=== PATIENT | female | born 1990 | race Caucasian/White ===

== ENCOUNTER 2017-05-17 10:47 | Emergency (ER) | payer MEDICAID, OTHER ==
[2017-05-17 11:09] LABS: Hematocrit 38.5 % (37.0-47.0); Hemoglobin 13.1 gm/dL (12.5-16.0); Mean Cell Volume 84.8 fl (78-100); Mean Corpuscular Hemoglobin 28.9 pg (27-31); Neutrophil # 4.6 K/mm3 (1.3-6.0); Neutrophil % 64.3 % (42-75.0); Platelet Count 199 K/mm3 (150-450); Red Blood Count 4.54 M/mm3 (4.2-5.4); Red Cell Distribution Width 12.3 % (11.5-14.0); White Blood Count 7.1 K/mm3 (4.0-10.5)
[2017-05-17 11:27] LABS: Albumin * 3.6 gm/dl (3.4-5.0); Anion Gap 12.3 mmol/L (6.8-13.8); BUN/Creatinine Ratio 20.7 (9.0-21.6); Bilirubin, Total 0.4 mg/dL (0.0-1.1); Ca. Corrected For Albumin 9.2 mg/dL (8.4-10.2); Calcium * 9.2 mg/dL (7.9-10.9); Carbon Dioxide 26.4 mmol/L (24-32.6); Potassium 3.7 mmol/L (3.4-4.6); Total Protein 7.7 gm/dL (6.2-8.2)
[2017-05-17 11:39] LABS: Urine Bilirubin Negative (NEGATIVE); Urine Blood 25 /ul (NEGATIVE); Urine Ketone Negative (NEGATIVE); Urine Nitrite Negative (NEGATIVE); Urine Protein Negative (NEGATIVE); Urine Specific Gravity 1.015 SP.GR. (1.005-1.010); Urine Urobilinogen Normal (NORMAL)
[2017-05-17 11:49] LABS: Urine Appearance Slightly Cloudy; Urine Bacteria 2+; Urine Color Yellow; Urine RBC None Seen /hpf (0-5); Urine WBC 0-5 /hpf (0-5)
[2017-05-17] MEDS ORDERED: MECLIZINE HCL 25 MG TABLET PO ONE (12:05)
[2017-05-17] MEDS ORDERED: MECLIZINE HCL 25 MG TABLET ONE (12:11)
--- OUTSIDE RECORDS SUMMARY | 2017-05-17 12:12 | XMS REPORT | Continuity of Care Document ---
:1990 Author Organization [employer] [place] [address] Care Team Providers Name Role Phone Cherrie Vargas Primary Care Provider [phone] Source Comments This disclosure is being made pursuant to the [employer] program and maynot contain all information available regarding this patient.[employer] Active Allergies and Adverse Reactions No Known Allergies Current Medications Be aware that medications may not be up to date as of this document. Alwaysverify current medications with the patient. Prescription Sig. Disp. Refills Start Date End Date Status vitamin Take 1 tablet by Active 28-0.8 MG TABS tablet mouth daily. norgestrel-ethinyl Take 1 tablet by 56 tablet 0 11/24/2016 Active estradiol 0.3-30 mouth daily. MG-MCG per tablet Skipping the placebo week. levonorgest-eth estrad Take 1 tablet by 91 each 3 01/12/2017 Active 91-day 0.15-0.03 &0.01 mouth daily. MG TABS tablet Hospital, Clinic, or Ordered Dose Route Frequency Start Date End Date Status Other Facility Administered Medication etonogestrel 1{each} SD every 3 years 10/30/2016 Active (IMPLANON/NEXPLANON) SC implant IMPL Active Problems Patient Care Coordination Note (FOB Mahesh) BMI 28. Girl (name?) H/o primary LH section for HSV 2012 (AB) desires repeat Place on suppression at [facility] due to 2 outbreaks already this Flu vaccine today Repeat on 09-01-16 at 0715 with [facility] Low lying placenta- resolved Problem Noted Date exam 10/13/2016 Status post repeat low transverse section 08/31/2016 Thyroid nodule 07/28/2014 Overview: Identified By: Vannesa Dinero Anxiety state 06/05/2013 Overview: Identified By: Sarahi Resendiz HSV (herpes simplex virus) infection 05/09/2013 Resolved Problems Problem Noted Date Resolved Date Swelling of lower extremity during in third 06/15/2016 06/16/2016 trimester- negative dopplers 06-14-16 Supervision of normal in third trimester 06/04/2016 10/30/2016 Last Assessment & Plan: 1. CBC/GCT today 2. RTC: 3-4 weeks Low-lying placenta in second trimester 04/15/2016 07/14/2016 Last Assessment & Plan: 1. 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 Has repeat scheduled Endometritis 05/19/2013 05/09/2015 S/P section 05/09/2013 05/09/2015 SROM (spontaneous rupture of membranes) 05/09/2013 05/09/2015 Immunizations Name Dates Previously Given Next Due INFLUENZA, INACTIVATED, QUADRIVALENT, 3 YEARS AND 08/06/2016,02/10/2016 older, single dose syringe/vial Tdap 07/23/2016,03/22/2013 Social History Tobacco Use Types Packs/Day Years Used Date Never Smoker Smokeless Tobacco: Never Used Alcohol Use Drinks/Week oz/Week Comments No 0.0 Last Filed Vital Signs Vital Sign Reading Time Taken Blood Pressure 110/60 10/30/2016 2:31 PM NEW CAR INSPECTOR Pulse 86 10/30/2016 2:31 PM NEW CAR INSPECTOR Temperature 36.9 C (98.5 F) 10/30/2016 2:31 PM NEW CAR INSPECTOR Respiratory Rate 16 10/30/2016 2:31 PM NEW CAR INSPECTOR Height 1.6 m (5' 3") 10/30/2016 2:31 PM NEW CAR INSPECTOR Weight 74.299 kg (163 lb 12.8 oz) 10/30/2016 2:31 PM NEW CAR INSPECTOR Body Mass Index 29.02 10/30/2016 2:31 PM NEW CAR INSPECTOR Oxygen Saturation 98% 10/26/2016 8:11 AM NEW CAR INSPECTOR Plan of Care Health Maintenance Due Date Last Done Comments Pap Smear 02/09/2019 02/10/2016, Additional history exists 07/05/2014, 06/21/2013 Tetanus/Pertussis (3 - Td) 07/23/2026 07/23/2016, 03/22/2013 Influenza Immunization Completed 08/06/2016, 02/10/2016 Results from Last 3 Months Not on file Insurance Payer Benefit Plan / Subscriber ID Type Phone Address Group WORK 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
--- NOTE | 2017-05-17 12:14 | ERNOTE ---
Dizziness ER Record Date of Service: 05/17/17 Presenting Symptoms: dizziness Time Seen by Provider: 05/17/17 11:56 Source: patient, RN notes reviewed Exam Limitations: no limitations Immunizations: IMMUNIZATION HX History of Influenza Vaccine Yes Allergies/Adverse Reactions: Allergies Allergy/AdvReac Type Severity Reaction Status Date / Time No Known Drug Allergies Allergy Verified 05/17/17 10:56 Home Medications: HOME MEDICATIONS Meclizine HCl [Antivert] 25 mg PO TID PRN #20 tab 05/17/17 [Last Taken Unknown] Sulfamethoxazole/Trimethoprim [Bactrim Ds] 1 tab PO BID #14 tab 05/17/17 [Last Taken Unknown] - History of Present Illness Narrative: 26 y/o female ambulatory to the ED for dizziness that began a couple of weeks ago, but has gotten worse today. She has not been taking anything for her symptoms. Timing and Duration: gradual onset, better Noted on awakening:: No Severity: max: moderate Severity: currently: mild Associated Symptoms: Present: nausea, light headedness. Absent: hearing loss, ringing/roaring in ear, ear pain, vomiting, headache, weakness, numbness, sweating, sense of confusion Sense of movement: Present: vague Decreased ability to stand/walk:: Present: walks w/o assistance Usually:: Present: walks w/o assistance Prior Treament: Denies: recently seen, similar symptoms before Review of Systems - Review of Systems Constitutional: Present: malaise. Absent: recent illness, fever, chills EYE: Absent: eye pain, blurred vision, vision changes ENT: Absent: ear pain, ear discharge, nose congestion, nasal drainage, sore throat Respiratory: Absent: shortness of breath, cough Cardiology: Absent: chest pain, palpitations, syncope Gastrointestinal/Abdominal: Present: nausea. Absent: vomiting, diarrhea, abdominal pain Genitourinary: Absent: frequency, dysuria, hematuria Musculoskeletal: Present: back pain. Absent: neck pain, joint pain Skin: Absent: rash, lesions Endocrine: Present: no symptoms reported Hematologic/Lymphatic: Present: no symptoms reported Psych: Present: no symptoms reported - Patient's Past Medical History Patient History - Medical: No pertinent hx Patient History - Cardiac/Respiratory: No pertinent hx Patient History - Cancer: No Hx of Cancer Patient History - Surgical Procedures: Patient History - Other: None - Social History Living Situations: home Psych History: No pertinent hx Does anyone smoke in the home?: No Smoking Status: Never smoker Alcohol Use: none Drug Use: none - Immunizations History of Influenza Vaccine: Yes Physical Exam - Physical Exam General Appearance: Present: wd/wn, alert, no apparent distress Eye Exam: Normal inspection: bilateral, PERRL: bilateral, EOMI: right, Abnormal EOM: left - Dizziness with gaze to far left Ears, Nose, Throat: Present: abnormal TM (R), abnormal TM (L) - fluid behind TM , nasal congestion - left nare, normal pharynx. Absent: hearing decreased, sinus pain/drainage Neck: Present: normal inspection, nontender, supple Respiratory: Present: no respiratory distress, normal breath sounds, no accessory muscle use, lungs clear Cardiovascular/Chest: Present: regular rate, rhythm, no murmur, normal peripheral pulses Gastrointestinal/Abdominal: Present: normal bowel sounds, nondistended, soft, tenderness - mild, suprapubic Back Exam: Present: normal inspection, no CVA tenderness Extremity Exam: Present: normal inspection, normal range of motion, no edema Neurological Exam: Present: alert, oriented, normal mood/affect, no motor/ sensory deficits, other - gait steady Skin Exam: Present: normal color, warm/dry ED Progress - Results and Orders Patient's Lab Results:: I have reviewed the patient's lab results. - Vital Signs Patient's Vital Signs:: I have reviewed the patient's vital signs. Vital Signs: Vital Signs 05/17/17 10:49 Temperature 36.4 C L Pulse Rate 68 Respiratory 12 Rate Blood Pressure 126/87 O2 Sat by Pulse 97 Oximetry - Progress/Reassessment Chief Complaint: Dizziness Progress:: Unchanged Departure Clinical Impression: Dizziness, Urinary tract infection in female - Departure Disposition: Home Follow Up Needed Condition: Stable Instructions: Urinary Tract Infection, Adult, [id number], Dizziness, Easy-to- Read Additional Instructions: Take Meclizine as needed for dizziness Take all of your antibiotic unless you are contacted and instructed not to Drink a lot of water Prescriptions: Meclizine HCl [Antivert] 25 mg PO TID PRN #20 tab PRN Reason: dizziness Sulfamethoxazole/Trimethoprim [Bactrim Ds] 1 tab PO BID #14 tab
[2017-05-17 12:15] VITALS: BP 122/81
== END 2017-05-17 12:21 | disposition home or self-care (01) ==
LOC: ER 10:47
DX: N39.0 Urinary tract infection, site not specified (principal); R42 Dizziness and giddiness

== ENCOUNTER 2017-05-27 08:13 | Emergency (ER) | payer MEDICAID ==
[2017-05-27 08:31] LABS: Urine Bilirubin Negative (NEGATIVE); Urine Blood Negative /ul (NEGATIVE); Urine Ketone Negative (NEGATIVE); Urine Nitrite Negative (NEGATIVE); Urine Protein Negative (NEGATIVE); Urine Specific Gravity >=1.030 SP.GR. (1.005-1.010); Urine Urobilinogen Normal (NORMAL); Urine pH 5.5 pH (5.0-7.0)
[2017-05-27 08:46] LABS: Urine Appearance Slightly Cloudy; Urine Color Yellow
[2017-05-27 08:47] LABS: Urine Bacteria 2+; Urine RBC None Seen /hpf (0-5); Urine WBC 0-5 /hpf (0-5)
[2017-05-27 08:49] VITALS: BP 128/82
--- OUTSIDE RECORDS SUMMARY | 2017-05-27 09:23 | XMS REPORT | Continuity of Care Document ---
:1990 Author Organization [employer] [place] [address] Care Team Providers Name Role Phone Cherrie Vargas Primary Care Provider [phone] Source Comments This disclosure is being made pursuant to the [employer] program and maynot contain all information available regarding this patient.[employer] Active Allergies and Adverse Reactions No Known [...] 08/31/2016 Thyroid nodule 07/28/2014 Overview: Identified By: Vannsea Dinero Anxiety state 06/05/2013 Overview: Identified By: [...] Taken Blood Pressure 110/60 10/30/2016 2:31 PM OPTICAL ENGINEERING TECHNICIAN Pulse 86 10/30/2016 2:31 PM OPTICAL ENGINEERING TECHNICIAN Temperature 36.9 C (98.5 F) 10/30/2016 2:31 PM OPTICAL ENGINEERING TECHNICIAN Respiratory Rate 16 10/30/2016 2:31 PM OPTICAL ENGINEERING TECHNICIAN Height 1.6 m (5' 3") 10/30/2016 2:31 PM OPTICAL ENGINEERING TECHNICIAN Weight 74.299 kg (163 lb 12.8 oz) 10/30/2016 2:31 PM OPTICAL ENGINEERING TECHNICIAN Body Mass Index 29.02 10/30/2016 2:31 PM OPTICAL ENGINEERING TECHNICIAN Oxygen Saturation 98% 10/26/2016 8:11 AM OPTICAL ENGINEERING TECHNICIAN Plan of Care Health Maintenance Due Date Last Done Comments Pap Smear 02/09/2019 02/10/2016, Additional history exists 07/05/2014, 06/21/2013 Tetanus/Pertussis (3 - Td) 07/23/2026 07/23/2016, 03/22/2013 Influenza Immunization Completed 08/06/2016, 02/10/2016 Results from Last 3 Months Not on file Insurance Payer Benefit Plan / Subscriber ID Type Phone Address Group WORK COMP SHARE WORKERS COMP SHARE [id number] [facility] [id number] [phone] [address] [facility] [place] [address] [employer] SHIP[employer] Personal/Famil Self 1990 Home: [address] y [phone] [place] [address]
--- NOTE | 2017-05-27 09:40 | ERNOTE ---
ER Female HPI Stated Complaint: PRIVATE Presenting Symptoms: dysuria Time Seen by Provider: 05/27/17 08:30 Source: patient Exam Limitations: no limitations Immunizations: IMMUNIZATION HX History of Influenza Vaccine Yes Allergies/Adverse Reactions: Allergies No Known Drug Allergies Allergy (Verified 05/27/17 08:21) Home Medications: HOME MEDICATIONS Ciprofloxacin [Cipro Suspension] 500 mg PO BID #20 btl 05/27/17 [Last Taken Unknown] Fluconazole [Diflucan] 150 mg PO DAILY #2 tablet 05/27/17 [Last Taken Unknown] - History of Present Illness Timing: Present: constant Quality: Present: moderate, aching, burning Onset Location: Present: urethral Radiation: Present: none Activities at Onset: Present: none Prior Abdominal Problems: Present: none Sexual Coy History: Present: single partner Modifying Factors - (Worsens): Present: urinating Associated Symptoms: Present: denies symptoms Review of Systems - Review of Systems Constitutional: Present: no symptoms reported EYE: Present: no symptoms reported ENT: Present: no symptoms reported Respiratory: Present: no symptoms reported Cardiology: Present: no symptoms reported Gastrointestinal/Abdominal: Present: no symptoms reported Genitourinary: Present: frequency, pain, dysuria Musculoskeletal: Present: no symptoms reported Skin: Present: no symptoms reported Neurological: Present: no symptoms reported Endocrine: Present: no symptoms reported Hematologic/Lymphatic: Present: no symptoms reported Psych: Present: no symptoms reported All Other Systems: All systems neg except as marked - Patient's Past Medical History Patient History - Medical: No pertinent hx Patient History - Cardiac/Respiratory: No pertinent hx Patient History - Cancer: No Hx of Cancer Patient History - Surgical Procedures: Patient History - Other: None LMP (females 10-50): last week - Family History Family History:: no untoward family reactions to anesthesia, no familial bleeding tendencies, no family history of clotting disorders, no family history of premature - Social History Living Situations: home Psych History: No pertinent hx Does anyone smoke in the home?: No Smoking Status: Never smoker Have you smoked in the past 12 months: No Do you dip or chew tobacco: No Patient requests Smoking Cessation Consult: No Initiate information on Smoking Cessation: No Alcohol Use: none Drug Use: none - Immunizations History of Influenza Vaccine: Yes Physical Exam - Physical Exam General Appearance: Present: mild distress Head Exam: Present: normal inspection Eye Exam: Normal inspection: bilateral, PERRL: bilateral, EOMI: bilateral Ears, Nose, Throat: Present: normal ENT inspection Neck: Present: normal inspection, nontender Respiratory: Present: no respiratory distress, normal breath sounds, no accessory muscle use, chest nontender, lungs clear Cardiovascular/Chest: Present: regular rate, rhythm, no murmur, normal peripheral pulses Peripheral Pulses: N=norm/S=strong/W=weak/B=bound/A=absent: Carotid (R): Normal , Carotid (L): Normal, Radial (R): Normal, Radial (L): Normal, Femoral (R): Normal, Femoral (L): Normal, Dorsalis-pedis (R): Normal, Dorsalis-pedis (L): Normal Gastrointestinal/Abdominal: Present: normal bowel sounds, nontender, nondistended Back Exam: Present: normal inspection, normal range of motion, no CVA tenderness , no vertebral tenderness Extremity Exam: Present: normal inspection, non-tender, normal range of motion, no edema Neurological Exam: Present: alert, oriented, normal mood/affect, no motor/ sensory deficits DTR: N=norm/NB=norm/brisk/A=abs/DD=dull/dimin/HC=hyperactive: Bicep (R): Normal , Bicep (L): Normal, Tricep (R): Normal, Tricep (L): Normal, Knee (R): Normal, Knee (L): Normal, Ankle (R): Normal, Ankle (L): Normal Skin Exam: Present: normal color, warm/dry Lymphatic Exam: Present: no adenopathy ED Progress - Results and Orders Patient's Lab Results:: I have reviewed the patient's lab results. - Vital Signs Patient's Vital Signs:: I have reviewed the patient's vital signs. Vital Signs: Vital Signs 05/27/17 05/27/17 08:18 08:48 Temperature 36.0 C L Pulse Rate 78 88 Respiratory 12 12 Rate Blood Pressure 130/78 128/82 O2 Sat by Pulse 97 97 Oximetry - EKG EKG: other - urinary tract infection - Progress/Reassessment Chief Complaint: Genitourinary Problem Progress:: Unchanged - Transfer of Care Expected Disposition: Discharge Departure Clinical Impression: Urinary tract infection in female - Departure Disposition: Home self-care Condition: Fair Instructions: Urinary Tract Infection, Adult, [id number] Prescriptions: Ciprofloxacin [Cipro Suspension] 500 mg PO BID #20 btl Fluconazole [Diflucan] 150 mg PO DAILY #2 tablet
== END 2017-05-27 09:46 | disposition home or self-care (01) ==
LOC: ER 08:13
DX: N39.0 Urinary tract infection, site not specified (principal)

== ENCOUNTER 2017-06-23 17:20 | Emergency (ER) | payer MEDICAID, OTHER ==
--- OUTSIDE RECORDS SUMMARY | 2017-06-23 17:52 | XMS REPORT | Encounter Summary ---
:1990 Author Organization [employer] [place] [address] Care Team Providers Name Role Phone Unavailable Primary Care Provider Unavailable Reason for Visit Reason Comments Medication Refill Encounter Details Date Type Department Care Team Description 01/11/2017 Refill [facility] Steven Ob Rachell Ny, WINDOW DRAPER Supervisor Carpenters [address] [place] [address] [place] [address] [phone] Social History Tobacco Use Types Packs/Day Years Used Date Never Smoker Smokeless Tobacco: Never Used Alcohol Use Drinks/Week oz/Week Comments No 0.0 Sex Assigned at Date Recorded Not on file as of this encounter Functional Status Functional Status Response Date of Assessment Are you deaf or do you have serious difficulty hearing? No 08/31/2016 Are you blind or do you have serious difficulty seeing, No 08/31/2016 even when wearing glasses? Do you have serious difficulty walking or climbing No 08/31/2016 stairs? (5 years old or older) Do you have difficulty dressing or bathing? (5 years old No 08/31/2016 or older) Because of a physical, mental, or emotional condition, do No 08/31/2016 you have difficulty doing errands alone such as visiting a doctor's office or shopping? (15 years old or older) Cognitive Status Response Date of Assessment Because of a physical, mental, or emotional condition, do No 08/31/2016 you have serious difficulty concentrating, remembering, or making decisions? (5 years old or older) as of this encounter Plan of Treatment Not on fileas of this encounter Visit Diagnoses Not on filein this encounter
--- OUTSIDE RECORDS SUMMARY | 2017-06-23 17:52 | XMS REPORT | Encounter Summary ---
:1990 Author Organization [employer] [place] [address] Care Team Providers Name Role Phone Unavailable Primary Care Provider Unavailable Reason for Visit Reason Comments Contraception Encounter Details Date Type Department Care Team Description 01/12/2017 Telephone [facility] Anahy Orellana, RN Contraception Preschool Teacher [address] [place] [address] [place] [address] [phone] Social History Tobacco Use Types Packs/Day Years [...]
--- OUTSIDE RECORDS SUMMARY | 2017-06-23 17:52 | XMS REPORT | Clinical Summary ---
:1990 Author Organization [employer] Address Unavailable [place] [address] Care Team Providers Name Role Phone Unavailable Primary Care Provider Unavailable Source Comments This disclosure is being made pursuant to the [employer] program and maynot contain all information available regarding this patient.[employer] Allergies No Known Allergies Current Medications Be aware [...] Date Status Other Facility Administered Medication etonogestrel 1 each SD every 3 years 10/30/2016 Active (IMPLANON/NEXPLANON) SC implant IMPLIndications:Nexplanon insertion Active Problems Patient Care Coordination Note (FOB [...] in third 06/15/2016 06/16/2016 trimester- negative dopplers 7-31-16 Supervision of normal in third trimester 06/04/2016 [...] 08/06/2016,02/10/2016 older, single dose syringe/vial Tdap 07/23/2016,03/22/2013 Family History Medical History Relation Name Comments Asthma Father COPD Maternal Grandfather Hypertension Mother Thyroid disease Paternal Grandfather Relation Name Status Comments Father Alive Maternal Grandfather Alive Maternal Grandmother Alive Mother Alive Paternal Grandfather Alive Paternal Grandmother Alive Social History Tobacco Use Types Packs/Day Years Used Date Never Smoker Smokeless Tobacco: Never Used Alcohol Use Drinks/Week oz/Week Comments No 0.0 Sex Assigned at Date Recorded Not on file Last Filed Vital Signs Vital Sign Reading Time Taken Blood Pressure 110/60 10/30/2016 2:31 PM 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 Pulse 86 10/30/2016 2:31 PM 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 Temperature 36.9 C (98.5 F) 10/30/2016 2:31 PM 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 Respiratory Rate 16 10/30/2016 2:31 PM 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 Oxygen Saturation 98% 10/26/2016 8:11 AM 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 Inhaled Oxygen Concentration - - Weight 74.3 kg (163 lb 12.8 oz) 10/30/2016 2:31 PM 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 Height 160 cm (5' 3") 10/30/2016 2:31 PM 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 Body Mass Index 29.02 10/30/2016 2:31 PM 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 Plan of Treatment Health Maintenance Due Date Last Done Comments Pap Smear 02/09/2019 02/10/2016, 07/05/2014, 06/21/2013, Additional history exists Tetanus/Pertussis (3 - Td) 07/23/2026 07/23/2016, 03/22/2013 INFLUENZA IMMUNIZATION Completed 08/06/2016, 02/10/2016 Results Not on filefrom Last 3 Months Insurance Payer Benefit Plan / Subscriber ID Type Phone Address Group WORK COMP SHARE WORKERS COMP SHARE [id number] [facility] [id number] [phone] [address] [employer] [address] [place] [phone] Home: [address] y [phone] [place] [address] [employer] [employer] Personal/Famil Self 1990 Home: [address] y [phone] [address]
--- OUTSIDE RECORDS SUMMARY | 2017-06-23 17:52 | XMS REPORT | Encounter Summary ---
:1990 Author Organization [employer] [place] [address] Care Team Providers Name Role Phone Unavailable Primary Care Provider Unavailable Reason for Visit Reason Comments Medication Refill Encounter Details Date Type Department Care Team Description 01/11/2017 Telephone [facility] Anahy Orellana junior software developer Refill Car Repairer Helper [address] [place] [address] [place] [address] Social History Tobacco Use Types Packs/Day Years [...]
--- OUTSIDE RECORDS SUMMARY | 2017-06-23 17:53 | XMS REPORT | Encounter Summary ---
:1990 Author Organization [employer] [place] [address] Care Team Providers Name Role Phone Unavailable Primary Care Provider Unavailable Encounter Details Date Type Department Care Team Description 11/24/2016 [facility] Anahy Orellana RN Printing Press Machine Operator [address] [place] [address] [place] [address] Social History Tobacco Use Types Packs/Day Years [...]
--- OUTSIDE RECORDS SUMMARY | 2017-06-23 17:53 | XMS REPORT | Encounter Summary ---
:1990 Author Organization [employer] [place] [address] Care Team Providers Name Role Phone Unavailable Primary Care Provider Unavailable Reason for Visit Reason Comments Other break through bleeding Encounter Details Date Type Department Care Team Description 12/10/2016 Telephone [facility] Molly Welsh, Other (break through [place] Chemist Physical RN bleeding) [address] [place] [address] [place] [address] Social History Tobacco Use Types Packs/Day Years [...]
--- OUTSIDE RECORDS SUMMARY | 2017-06-23 17:53 | XMS REPORT | Encounter Summary ---
:1990 Author Organization [employer] [place] [address] Care Team Providers Name Role Phone Unavailable Primary Care Provider Unavailable Reason for Visit Reason Comments Medication Refill Encounter Details Date Type Department Care Team Description 12/02/2016 Refill [facility] Anahy Walter administrative services officer [address] [place] [address] [place] [address] Social History Tobacco Use Types Packs/Day Years [...]
[2017-06-23 17:54] LABS: Urine Bilirubin Negative (NEGATIVE); Urine Blood Negative /ul (NEGATIVE); Urine Ketone Negative (NEGATIVE); Urine Nitrite Negative (NEGATIVE); Urine Protein Negative (NEGATIVE); Urine Urobilinogen Normal (NORMAL)
--- OUTSIDE RECORDS SUMMARY | 2017-06-23 17:54 | XMS REPORT | Encounter Summary ---
:1990 Author Organization [employer] [place] [address] Care Team Providers Name Role Phone Unavailable Primary Care Provider Unavailable Reason for Visit Reason Comments Telephone Call Encounter Details Date Type Department Care Team Description 10/21/2016 Telephone [facility] Lashon Oswald RN Telephone Call Circulation Assistant [address] [place] [address] [place] [address] Social History Tobacco Use Types Packs/Day Years [...]
--- OUTSIDE RECORDS SUMMARY | 2017-06-23 17:54 | XMS REPORT | Encounter Summary ---
:1990 Author Organization [email or web address] [facility] [place] [address] Care Team Providers Name Role Phone Unavailable Primary Care Provider Unavailable Reason for Visit Reason Comments Cough x 1 week Ear Pain Encounter Details Date Type Department Care Team Description 10/26/2016 Office Visit [facility] Street, Raegan S, Upper respiratory Urgent Care [place] NURSING PROJECT COORDINATOR tract infection, [address], [address] [place] unspecified type [address] (Primary Dx) [place] [phone] [place] [id number] Social History Tobacco Use Types Packs/Day Years Used Date Never Smoker Smokeless Tobacco: Never Used Alcohol Use Drinks/Week oz/Week Comments No 0.0 Sex Assigned at Date Recorded Not on file as of this encounter Last Filed Vital Signs Vital Sign Reading Time Taken Blood Pressure 114/68 10/26/2016 8:11 AM CHICK GRADER Pulse 78 10/26/2016 8:11 AM CHICK GRADER Temperature 36.6 C (97.8 F) 10/26/2016 8:11 AM CHICK GRADER Respiratory Rate 16 10/26/2016 8:11 AM CHICK GRADER Oxygen Saturation 98% 10/26/2016 8:11 AM CHICK GRADER Inhaled Oxygen Concentration - - Weight 73 kg (161 lb) 10/26/2016 8:11 AM CHICK GRADER Height 160 cm (5' 3") 10/26/2016 8:11 AM CHICK GRADER Body Mass Index 28.52 10/26/2016 8:11 AM CHICK GRADER in this encounter Functional Status Functional Status Response [...] old or older) as of this encounter Progress Notes Raegan Ndiaye ARNP - 10/26/2016 8:20 AM CSTFormatting of this note may be different from the original. Chief Complaint Patient presents with Cough x 1 week Ear Pain Subjective: HPI Patient presents with a week of cough, worse at night. She denies any known fevers or chills. She's been having right ear pain for about 3 days. She has been congested. She denies any nausea, vomitingor diarrhea. She does have an occasional sore throat. She states that her cough sometimes causes some wheezes. She has been blowing her nose frequently. 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 Has been using OTC medications Social History Substance Use Topics Smoking status: Never Smoker Smokeless tobacco: Never Used Alcohol Use: No Review of Systems CONSTITUTIONAL: See HPI. Negative for appetite change and fatigue. HEENT: See HPI RESPIRATORY: See HPI. CARDIOVASCULAR: Negative for chest pain. GASTROINTESTINAL: Negative for nausea, vomiting, abdominal pain, diarrhea and constipation. SKIN: Negative. Objective: Filed Vitals: 10/26/16 0811 BP: 114/68 Pulse: 78 Temp: 36.6 C (97.8 F) TempSrc: Tympanic Resp: 16 Height: 1.6 m (5' 3") Weight: 73.029 kg (161 lb) SpO2: 98% Physical Exam GENERAL: She is oriented to person, place, and time. She appears well-developed and well-nourished, and in no acute distress. HEAD: Normocephalic, atraumatic. EYES: Right eye clear. Left eye clear. Pupils are equal, round, and reactive to light. EARS: Right and left TMs normal. Ear canals normal. NOSE: Mild, thin rhinorrhea. THROAT: Uvula is midline, oropharynx is clear and moist and with mild erythema. No tonsillar exudate. NECK: No cervical adenopathy. Neck is supple. No thyromegaly. CARDIOVASCULAR: Normal rate, regular rhythm and normal heart sounds. No murmur heard. RESPIRATORY: Lungs are clear to auscultation without crackles, wheezes, or rhonchi. Breathing is unlabored. Assessment/Orders: ICD-9-CM ICD-10-CM 1. Upper respiratory tract infection, unspecified type 465.9 J06.9 Plan: Medication as ordered. Side effects of prednisone discussed. Advised to push fluids. Reviewed fever, pain, and symptom control with Tylenol or ibuprofen, salt water gargles, nasal saline, humidity, and OTC medications. Fluids and rest. Instructed to call or return for: --Symptoms not improved in 5-7 days --Worsening symptoms --New, unexplained symptoms develop Patient understands and agrees with plan. KENYA Mc 10/26/2016 8:23 AM in this encounter Plan of Treatment Not on fileas of this encounter Visit Diagnoses Diagnosis Upper respiratory tract infection, unspecified type - Primary in this encounter
--- OUTSIDE RECORDS SUMMARY | 2017-06-23 17:54 | XMS REPORT | Encounter Summary ---
:1990 Author Organization [employer] [place] [address] Care Team Providers Name Role Phone Unavailable Primary Care Provider Unavailable Reason for Visit Reason Comments Follow-up Encounter Details Date Type Department Care Team Description 10/05/2016 Telephone [facility] Anahy Robertson RN Postpartum Follow-up [place] Test Man [address] [place] [address] [place] [address] Social History Tobacco Use Types Packs/Day Years [...]
--- OUTSIDE RECORDS SUMMARY | 2017-06-23 17:54 | XMS REPORT | Encounter Summary ---
:1990 Author Organization [employer] Address Unavailable [place] [address] Care Team Providers Name Role Phone Unavailable Primary Care Provider Unavailable Reason for Visit Reason Comments Follow-up Encounter Details Date Type Department Care Team Description 10/13/2016 Visit [facility] Clara Mak Status post repeat low transverse section (Primary Dx); Megan Salmon Troll Fisher A, exam [address] [place] [address] [address] [phone] [place] [id number] Social History Tobacco Use Types Packs/Day Years Used Date Never Smoker Smokeless Tobacco: Never Used Alcohol Use Drinks/Week oz/Week Comments No 0.0 Sex Assigned at Date Recorded Not on file as of this encounter Last Filed Vital Signs Vital Sign Reading Time Taken Blood Pressure 116/78 10/13/2016 10:26 AM OLD COIN DEALER Pulse 76 10/13/2016 10:26 AM OLD COIN DEALER Temperature 36.3 C (97.4 F) 10/13/2016 10:26 AM OLD COIN DEALER Respiratory Rate 20 10/13/2016 10:26 AM OLD COIN DEALER Oxygen Saturation - - Inhaled Oxygen Concentration - - Weight 73 kg (161 lb) 10/13/2016 10:26 AM OLD COIN DEALER Height 160 cm (5' 3") 10/13/2016 10:26 AM OLD COIN DEALER Body Mass Index 28.52 10/13/2016 10:26 AM OLD COIN DEALER in this encounter Functional Status Functional Status [...] older) as of this encounter Progress Notes Clara Mak MD - 10/13/2016 10:36 AM CSTFormatting of this note may be different from the original. Subjective: Sierra Strange is a 26 y.o. female who presents for a visit. She is 6 weeks following a low cervical vertical section. Baby female named Amada . Baby's course has been uncomplicated . Baby is feeding by breast.Bleeding no bleeding. Bowel function is normal. Bladder function is normal. Desires Nexplanon for contracetption. depression screening: negative. . LAST pap was 01/28 and result normal, no history of abnormal Patient's problem list, medications, allergies, past medical, surgical, social and family histories were reviewed and updated as appropriate. Objective: BP 116/78 mmHg | Pulse 76 | Temp(Src) 97.4 F (36.3 C) (Tympanic) | Resp 20 | Ht 5' 3" (1.6 m) | Wt 161 lb (73.029 kg) | BMI 28.53 kg/m2 | ? Yes General: alert, appears stated age and cooperative Abdomen: soft, non-tender; bowel sounds normal; no masses, no organomegaly Vulva: normal Vagina: normal vagina, no discharge, exudate, lesion, or erythema Cervix: no lesions Corpus: normal size, contour, position, consistency, mobility, non-tender Adnexa: no mass, fullness, tenderness Assessment: normal exam. Pap smear not done at today's visit. Plan: 1. Contraception: desires implanon 2. Fenugreek for milk production 3. Follow up in: 1 year or as needed. Make appt with DS for nexplanon. Had in past and liked it. in this encounter Plan of Treatment Not on fileas of this encounter Visit Diagnoses Diagnosis Status post repeat low transverse section - Primary delivery, without mention of indication, unspecified as to episode of care exam Routine follow-up in this encounter
--- OUTSIDE RECORDS SUMMARY | 2017-06-23 17:54 | XMS REPORT | Encounter Summary ---
:1990 Author Organization [employer] [place] [address] Care Team Providers Name Role Phone Unavailable Primary Care Provider Unavailable Reason for Visit Reason Comments Contraception Encounter Details Date Type Department Care Team Description 10/30/2016 Office Visit [facility] Rachell Ny, Nexplanon insertion [place] Fur Mixer LIFE SKILLS TEACHER (Primary Dx) [address] [place] [address] Road [phone] [place], [place] [address] [phone] Social History Tobacco Use Types Packs/Day Years Used Date Never Smoker Smokeless Tobacco: Never Used Alcohol Use Drinks/Week oz/Week Comments No 0.0 Sex Assigned at Date Recorded Not on file as of this encounter Last Filed Vital Signs Vital Sign Reading Time Taken Blood Pressure 110/60 10/30/2016 2:31 PM WORKFORCE MANAGEMENT MANAGER Pulse 86 10/30/2016 2:31 PM WORKFORCE MANAGEMENT MANAGER Temperature 36.9 C (98.5 F) 10/30/2016 2:31 PM WORKFORCE MANAGEMENT MANAGER Respiratory Rate 16 10/30/2016 2:31 PM WORKFORCE MANAGEMENT MANAGER Oxygen Saturation - - Inhaled Oxygen Concentration - - Weight 74.3 kg (163 lb 12.8 oz) 10/30/2016 2:31 PM WORKFORCE MANAGEMENT MANAGER Height 160 cm (5' 3") 10/30/2016 2:31 PM WORKFORCE MANAGEMENT MANAGER Body Mass Index 29.02 10/30/2016 2:31 PM WORKFORCE MANAGEMENT MANAGER in this encounter Functional Status Functional Status [...] old or older) as of this encounter Instructions Patient Instructions - Rachell Ny ARNP - 10/30/2016 2:54 PM WORKFORCE MANAGEMENT MANAGER Implant for Control: Care Instructions Your Care Instructions The implant is used to prevent . It's a thin rafaela about the size of a matchstick that is inserted under the skin (subdermal) on the inside of your arm. The implant prevents for 3 years. After it is put in, you don't have to do anything else to prevent . Follow-up care is a tejeda part of your treatment and safety. Be sure to make and go to all appointments, and call your doctor if you are having problems. It's also a good idea to know your test resultsand keep a list of the medicines you take. How can you care for yourself at home? How do you use the subdermal implant? The implant is put in and taken out by your doctor or another trained health professional. This is done in your doctor's office. It only takes a few minutes. Ask your doctor if you need to use backup control, such as a condom. And ask if (and how long) you should avoid intercourse after you get the implant. You may need to do this, depending on where you are in your cycle. What else do you need to know? The implant has side effects. You may have changes in your period. Your period may stop. You may also have spotting or bleeding between periods. You may have mood changes, less interest in sex, or weight gain. Remember that 3 years after you receive the implant, you must have it removed or get a new one. If you don't replace the implant and don't use another form of control , you could get . If you have the implant removed, you'll have to find another method of control. If you don't, you may get . Even if you are planning to get , you have to have the implant removed. Check with your doctor before you use any other medicines. This includes over -the-counter medicines, vitamins, herbal products, and supplements. control hormones may not work as well to prevent when combined with other medicines. The implant doesn't protect against sexually transmitted infections (STIs), such as herpes or HIV/AIDS. If you're not sure if your sex partner might have an STI, use a condom to protect against infection. When should you call for help? Call your doctor now or seek immediate medical care if: You have severe belly pain. Watch closely for changes in your health, and be sure to contact your doctor if: You think you might be . You have any problems with your control method. You think you may be depressed. You regularly have spotting. You think you may have been exposed to or have a sexually transmitted infection. Where can you learn more? Go to the "Search [employer] Library" box on [employer] https:// [employer]Personeta/[employer]/ by clicking on the magnifying glass tab. Enter S006 in the search box to learn more about "Implant for Control: Care Instructions." Not on [employer]? Go to [email or web address]/Niiki [employer]ariAdvize/ and click the "Sign Up Now" link to request an activation code. Current as of: April 13, 2016 Content Version: 11.0 [id number] [employer]. Care instructions adapted under license by your healthcare professional. This care instruction is for use with your licensed healthcare professional. If you havequestions about a medical condition or this instruction, always ask your healthcare professional. [employer] disclaims any warranty or liability for your use of this information. in this encounter Plan of Treatment Not on fileas of this encounter Results POCT urine (10/30/2016) Component Value Ref Range Preg Test, Ur POC Negative Negative, Indeterminate Test, UR POC Specimen Performing Laboratory [facility] [place] SODA ROOM OPERATOR [address] [place] [id number] in this encounter Visit Diagnoses Diagnosis Nexplanon insertion - Primary Insertion of implantable subdermal contraceptive in this encounter Administered Medications Medication Order MAR Action Action Date Dose Rate Site etonogestrel Given 10/30/2016 15:05 WORKFORCE MANAGEMENT MANAGER 1 each Right Arm (IMPLANON/NEXPLANON) SC implant IMPL 1 each, Subdermal, EVERY 3 YEARS, First dose on Wed10/30/16 at 1530 in this encounter
[2017-06-23 18:10] LABS: Urine Appearance Cloudy; Urine Bacteria 2+; Urine Color Yellow; Urine Hyaline Cast 0-5 /LPF; Urine RBC None Seen /hpf (0-5)
[2017-06-23 18:11] LABS: Urine Amorphous Sediment Moderate - 2+ (NONE-FEW)
--- NOTE | 2017-06-23 18:11 | ERNOTE ---
ER Female HPI Date of Service: 06/23/17 Stated Complaint: URINARY PROBLEM, VERTIGO Time Seen by Provider: 06/23/17 17:44 Source: patient Exam Limitations: no limitations Immunizations: IMMUNIZATION HX Immunizations Up to Date Yes History of Influenza Vaccine Yes Hx Pneumococcal Vaccination Yes Allergies/Adverse Reactions: Allergies No Known Drug Allergies Allergy (Verified 06/23/17 17:34) Home Medications: HOME MEDICATIONS Naproxen [Naprosyn] 500 mg PO BID PRN #60 tab 06/23/17 [Last Taken Unknown] - History of Present Illness Narrative: Pt. comes in with c/o L flank pain, dysuria, and mild intermittent dizziness today. Pt. denies any CP, NVD, fever, SOB, alleviating factors, aggravating factors, or prehospital treatment. Pt. states taht symptoms are similar to a UTI that she has had in the past. Review of Systems - Review of Systems Constitutional: Present: no symptoms reported. Absent: recent illness, fever, chills, weakness, fatigue, malaise EYE: Present: no symptoms reported ENT: Present: no symptoms reported Respiratory: Present: no symptoms reported. Absent: shortness of breath, cough , wheezing Cardiology: Present: no symptoms reported. Absent: chest pain, palpitations, edema Gastrointestinal/Abdominal: Present: abdominal pain - L pelvic and suprapubic. Absent: nausea, vomiting, diarrhea Genitourinary: Present: frequency, pain, dysuria. Absent: hematuria, decreased urinary output Musculoskeletal: Present: back pain - L flank Skin: Present: no symptoms reported. Absent: rash, change in color Neurological: Present: no symptoms reported. Absent: headache, dizziness/light- headedness, numbness, tingling - Patient's Past Medical History Patient History - Medical: No pertinent hx Patient History - Cardiac/Respiratory: No pertinent hx Patient History - Cancer: No Hx of Cancer Patient History - Surgical Procedures: Patient History - Other: None LMP (females 10-50): 2 weeks ago - Social History Living Situations: home Psych History: No pertinent hx Does anyone smoke in the home?: No Smoking Status: Former smoker Alcohol Use: none Drug Use: none - Immunizations Immunizations Up to Date: Yes Hx Pneumococcal Vaccination: Yes History of Influenza Vaccine: Yes Physical Exam - Physical Exam General Appearance: Present: wd/wn, alert, no apparent distress Head Exam: Present: normal inspection, no evidence of injury Eye Exam: Normal inspection: bilateral, PERRL: bilateral, EOMI: bilateral Ears, Nose, Throat: Present: normal ENT inspection, normal pharynx Neck: Present: normal inspection, nontender. Absent: lymphadenopathy (R), lymphadenopathy (L) Respiratory: Present: no respiratory distress, normal breath sounds, no accessory muscle use, chest nontender, lungs clear ED Progress - Date and Time Seen: Date and Time: 06/23/17 20:[address] Patel and as pt. is constipated will start pt. on medication for constipation and pain medication for flank pain and have pt. follow up with PCP. if pt. culture comes back positive will start on abx. - Results and Orders Patient's Lab Results:: I have reviewed the patient's lab results. - Vital Signs Patient's Vital Signs:: I have reviewed the patient's vital signs. Vital Signs: Vital Signs 06/23/17 17:28 Temperature 37.0 C Pulse Rate 95 Respiratory 16 Rate Blood Pressure 124/78 O2 Sat by Pulse 100 Oximetry - X-Ray X-Ray #1 X-Ray: abdomen Interpretation: Reviewed by me X-ray Comments: no free air non obstructive bowel gas pattern. moderate stool retention. - Progress/Reassessment Chief Complaint: Urinary Tract Problems Departure Clinical Impression: Flank pain Constipation Qualifiers: Constipation type: slow transit constipation Qualified Code(s): K59.01 - Slow transit constipation - Departure Disposition: Home self-care Condition: Good Instructions: Constipation, Adult, [id number] Additional Instructions: Please follow up with primary provider in 2-3 days to ensure that everything is healing. Please start taking miralax daily for 5 days. Please take pain medications as prescribed. Prescriptions: Naproxen [Naprosyn] 500 mg PO BID PRN #60 tab PRN Reason: Pain
[2017-06-23 19:09] LABS: Urine Bilirubin Negative (NEGATIVE); Urine Blood Negative /ul (NEGATIVE); Urine Ketone Negative (NEGATIVE); Urine Nitrite Negative (NEGATIVE); Urine Protein Negative (NEGATIVE); Urine Specific Gravity 1.025 SP.GR. (1.005-1.010); Urine Urobilinogen Normal (NORMAL)
[2017-06-23 19:33] LABS: Urine Appearance Clear; Urine Bacteria 3+; Urine Color Yellow; Urine RBC None Seen /hpf (0-5); Urine WBC 0-5 /hpf (0-5)
[2017-06-23 19:53] LABS: Hematocrit 40.4 % (37.0-47.0); Hemoglobin 13.5 gm/dL (12.5-16.0); Mean Cell Volume 86.3 fl (78-100); Mean Corpuscular Hemoglobin 28.8 pg (27-31); Mean Corpuscular Hgb Conc 33.4 g/dl (32-36); Mean Platelet Volume 10.9 fl (6.0-9.5); Neutrophil # 5.3 K/mm3 (1.3-6.0); Neutrophil % 58.3 % (42-75.0); Platelet Count 229 K/mm3 (150-450); Red Blood Count 4.68 M/mm3 (4.2-5.4); Red Cell Distribution Width 12.3 % (11.5-14.0); White Blood Count 9.1 K/mm3 (4.0-10.5)
[2017-06-23 20:07] LABS: Anion Gap 14.6 mmol/L (6.8-13.8); BUN/Creatinine Ratio 16.1 (9.0-21.6); Bilirubin, Total 0.4 mg/dL (0.0-1.1); Ca. Corrected For Albumin 8.3 mg/dL (8.4-10.2); Calcium * 8.6 mg/dL (7.9-10.9); Potassium 3.6 mmol/L (3.4-4.6); Total Protein 8.2 gm/dL (6.2-8.2)
[2017-06-23] MEDS ORDERED: NAPROXEN SODIUM 550 MG TABLET PO ONE (20:33)
[2017-06-23] MEDS ORDERED: NAPROXEN SODIUM 550 MG TABLET ONE (20:47)
[2017-06-23 20:59] VITALS: BP 123/75
== END 2017-06-23 21:04 | disposition home or self-care (01) ==
LOC: ER 17:20
DX: R10.9 Unspecified abdominal pain (principal); K59.01 Slow transit constipation